=== PATIENT | female | born 1980 | race Caucasian/White ===

== ENCOUNTER 2020-06-16 08:29 | Outpatient (REF) | payer BC, OTHER, SELFPAY ==
[2020-06-16 14:13] LABS: CT PCR NOT DETECTED (Not Detect.); NG PCR NOT DETECTED (Not Detect.)
[2020-06-17 15:15] LABS: BV Int Neg Control Negative (Negative); BV Int Pos Control Positive (Positive)
[2020-06-21 14:22] LABS: HPV mRNA E6/E7 rflx Not Detected (Not Detected)
== END 2020-06-16 08:30 | disposition home or self-care (01) ==
LOC: HO.LAB 08:29
PROVIDERS: PCP Nurse Practitioner Family; Visit Provider Advanced Practice Midwife
DX: Z01.419 Encounter for gynecological examination (general) (routine) without abnormal findings (principal); Z11.3 Encounter for screening for infections with a predominantly sexual mode of transmission; Z11.51 Encounter for screening for human papillomavirus (HPV); N93.9 Abnormal uterine and vaginal bleeding, unspecified; Z20.2 Contact with and (suspected) exposure to infections with a predominantly sexual mode of transmission; Z80.3 Family history of malignant neoplasm of breast
CPT/HCPCS: 58100; 81025; 87480; 87491; 87510; 87591; 87624; 87660; 88142; 88305

== ENCOUNTER 2020-06-30 14:11 | Outpatient (REF) | payer BC, OTHER, SELFPAY ==
--- NOTE | ~2020-06-30 | US_ITS ---
EXAMINATION:US transvaginal, US pelvic complete CLINICAL INFORMATION: Reason for Exam Z80.3 - ABNORMAL UTERINE BLEEDING COMPARISON: No priors available. LMP: 06/18/2020 FINDINGS: UTERUS: The uterus is anteverted. Size: 9.7 x 4.9 cm. Uterine mass: There is no uterine mass. Cervix: Grossly unremarkable. Endometrium: There is echogenic structure within the endometrium, could be a polyp roughly measure 1.5 x 0.7 x 1.4 cm. endometrial thickness measures 1.2 cm ADNEXA: Normal Right ovary: Normal in size. Simple cyst 2.1 x 1.4 x 1.9 cm. Left ovary: Normal in size. Simple cyst 1.9 x 1.9 x 1.5 cm. Doppler exam: Normal Doppler flow identified in both ovaries. FREE FLUID: Trace amount of free fluid. OTHER FINDINGS: None US/US pelvic complete IMPRESSION: There is echogenic structure which could be a polyp within the endometrium 1.5 cm. Attention to follow-up recommended. Bilateral ovarian simple cystic structures likely follicles.
--- NOTE | ~2020-06-30 | US_ITS ---
EXAMINATION:US transvaginal, US pelvic complete CLINICAL INFORMATION: Reason for Exam Z80.3 - ABNORMAL UTERINE BLEEDING COMPARISON: No priors available. LMP: 06/18/2020 FINDINGS: UTERUS: The uterus is anteverted. Size: 9.7 x 4.9 cm. Uterine mass: There is no uterine mass. Cervix: Grossly unremarkable. Endometrium: There is echogenic structure within the endometrium, could be a polyp roughly measure 1.5 x 0.7 x 1.4 cm. endometrial thickness measures 1.2 cm ADNEXA: Normal Right ovary: Normal in size. Simple cyst 2.1 x 1.4 x 1.9 cm. Left ovary: Normal in size. Simple cyst 1.9 x 1.9 x 1.5 cm. Doppler exam: Normal Doppler flow identified in both ovaries. FREE FLUID: Trace amount of free fluid. OTHER FINDINGS: None US/US transvaginal IMPRESSION: There is echogenic structure which could be a polyp within the endometrium 1.5 cm. Attention to follow-up recommended. Bilateral ovarian simple cystic structures likely follicles.
[2020-06-30 15:15] LABS: Hematocrit 42.2 % (37-47); Hemoglobin 13.6 g/dl (12.0-16.0); Mean Corpuscular HGB Conc 32.2 g/dl (31.0-35.0); Mean Corpuscular Hemoglobin 30.1 pg (27.0-33.0); Mean Corpuscular Volume 93.4 fL (80-98); Mean Platelet Volume 11.9 fL (9.4-12.3); Platelet Count 253 X10*3/uL (160-400); Red Blood Count 4.52 X10*6/uL (4.20-5.50); Red Cell Distribution Width 12.7 % (11.0-16.0); White Blood Count 8.3 X10*3/uL (4.8-10.8)
[2020-06-30 16:05] LABS: Thyroid Stimulating Hormone 1.69 uIU/mL (0.32-4.0)
== END 2020-06-30 14:12 | disposition home or self-care (01) ==
LOC: HO.US 14:11
PROVIDERS: PCP Nurse Practitioner Family; Visit Provider Advanced Practice Midwife
DX: Z01.419 Encounter for gynecological examination (general) (routine) without abnormal findings (principal); N93.9 Abnormal uterine and vaginal bleeding, unspecified
CPT/HCPCS: 36415; 76830; 76856; 84443; 85027

== ENCOUNTER → 2020-07-07 11:20 | Outpatient (BNVA) | payer BC, OTHER, SELFPAY | PROVIDERS: Visit Provider Advanced Practice Midwife ==

== ENCOUNTER → 2020-07-17 14:55 | Outpatient (BNVA) | payer BC, OTHER, SELFPAY | PROVIDERS: PCP Nurse Practitioner Family; Visit Provider Obstetrics & Gynecology ==

== ENCOUNTER 2020-08-10 08:36 | Day surgery (SDC) | payer BC, OTHER, SELFPAY ==
[2020-08-04 13:42] VITALS: BMI 25.2
--- NOTE | 2020-08-08 14:52 | P.CONAN_ITS ---
Documented by User: Rita Carolina 08/08/20 14:53 HPI - Anesthesia Eval Consult details Narrative: 39yo F for D&C Hysteroscopy with Novasure, Poss Myosure PMFSH Active Problems Active Problems: All Active Problems (Updated 06/28/20 @ 10:15 by Migdalia Calhoun CNM) Cervical cancer screening (Acute) Family history of breast cancer in mother (Acute) Abnormal uterine bleeding (AUB) (Acute) Potential exposure to STD (Acute) Well woman exam with routine gynecological exam (Acute) Past Medical History Medical History Heavy menstrual bleeding Insomnia Seasonal allergies Family History Family History Father Myocardial infarction Diabetes mellitus Kidney failure Mother COPD (chronic obstructive pulmonary disease) Smoker Brother No problems noted. Maternal Grandmother Breast cancer Brother No problems noted. Son No problems noted. Son No problems noted. Maternal Aunt Cervical cancer Surgical History Surgical History History of bilateral tubal ligation History of tumor Social History Social History Alcohol intake: current Alcohol intake frequency: holidays/special occasions only Patient Tobacco Use Status: Former Tobacco user Quit Date: 2004 Tobacco use type: Cigarette Years Smoked: 10 Smoked in Last 30 Days: No Use of substances other than those prescribed or required for medical reasons: Yes Substance Use Type: Marijuana Substance Use Frequency: Occasionally Are you DNR?: No Advance Directives: No Advance Directives Information Provided: Yes Gender identity: female Meds Allergies Allergy/AdvReac Type Severity Reaction Status Date / Time No Known Allergies [NKA] Allergy Verified 07/17/20 14:59 Home Medications Medication Instructions Recorded Confirmed Last Taken Type cetirizine 10 mg tablet 10 mg PO DAILY PRN 06/16/20 06/16/20 Unknown History Exam Exam Date and Time: August 08, 2020 1452 Height,Weight and Vital Signs: Height 5 ft 2 in Weight 62.596 kg Assessment and Plan Assessment Anesthesia Assessment: Chart Reviewed Documented by User: Sarah Anderson 08/10/20 09:32 [facility] Past Medical History Medical History Heavy menstrual bleeding Insomnia Seasonal allergies Family History Family History Father Myocardial infarction Diabetes mellitus Kidney failure Mother COPD (chronic obstructive pulmonary disease) Smoker Brother No problems noted. Maternal Grandmother Breast cancer Brother No problems noted. Son No problems noted. Son No problems noted. Maternal Aunt Cervical cancer Surgical History Surgical History History of bilateral tubal ligation History of tumor Social History Social History Alcohol intake: current Alcohol intake frequency: holidays/special occasions only Patient Tobacco Use Status: Former Tobacco user Quit Date: 2004 Tobacco use type: Cigarette Years Smoked: 10 Smoked in Last 30 Days: No Use of substances other than those prescribed or required for medical reasons: Yes Substance Use Type: Marijuana Substance Use Frequency: Occasionally Are you DNR?: No Advance Directives: No Advance Directives Information Provided: Yes Gender identity: female Meds Allergies Allergy/AdvReac Type Severity Reaction Status Date / Time No Known Allergies [NKA] Allergy Verified 07/17/20 14:59 Home Medications Medication Instructions Recorded Confirmed Last Taken Type cetirizine 10 mg tablet 10 mg PO DAILY PRN 06/16/20 06/16/20 Unknown History Exam Airway Mallampati Class: I TM Dist: >3cm Neck ROM: Full Loose/Missing/Broken Teeth: No Heart: RRR Lungs: CTA Assessment and Plan Assessment Anesthesia Assessment: Anesthesia Plan Discussed and Chart Reviewed Final Anesthetic Review NPO: Yes ASA Class: II Final Preanesthetic Review: Meds/Allgs Chart Reviewed, Consent Obtained/Reviewed and Anes Risks/Benef Reviewed Patient Risk: Low Procedure Risk: Low Anesthetic Plan Anesthetic Plan: GA Disposition: Standard PACU
[2020-08-10 09:07] VITALS: BP 95/51; PULSE 68; RESP 16; TEMP 36.8; O2SAT 97; BMI 25.4
[2020-08-10] MEDS: Lactated Ringers 1,000 ML 100 ML IVCONT (09:07)
--- NOTE | 2020-08-10 09:13 | PC.NURSE ---
Patient wearing hoop earrings and one conchis wedding ring. All jewelry removed and placed in labeled blue cup.
[2020-08-10] MEDS: Acetaminophen 325 MG TABLET 975 MG PO (09:33)
--- NOTE | 2020-08-10 09:39 | MHC.SHP ---
Pre-Procedural Eval Section A The patient is an INPATIENT: No Changes since office visit: No Cold of Flu in the past 2 weeks, No New Medical Problems, No Changes in Medication and No Patient answered all questions The History & Physical has been completed within 30 days and I have reviewed it.: Yes Section B Chief Complaint: AVB Allergies: Allergies Allergy/AdvReac Type Severity Reaction Status Date / Time No Known Allergies [NKA] Allergy Verified 07/17/20 14:59 Plan I have reviewed the history and physical and performed a pertinent physical examination on my patient. No changes have occurred unless specified.
--- NOTE | 2020-08-10 09:40 | P.OP_ITS ---
Operative Note Operative Note Date of Service: 08/10/20 Narrative: Pre-Op Diagnoses: abnormal bleeding, suspected endometrial polyp Post-Op Diagnoses: same as pre-op Procedures performed: hysteroscopy D&C with myosure, novasure endometrial ablation Complications: None Specimens: endometrial curettings Disposition: PACU Ms. Cloud is a 39yo with menorrhagia for many years. Medical management was not attempted as she had her tubes tied previously in order to stop using hormonal control. An endometrial biopsy was performed, which showed secretory endometrium; negative for atypia or malignancy. The patient was counseled that endometrial ablation is not indicated if she d esires future fertility. The patient expressed understanding of this and stated that her family planning is complete and her current form of control is permanent sterilization. Surgical Risks: The patient was informed of the risks and benefits of the procedure. Risks included but were not limited to bleeding, infection, injury to the vulva, vagina, or cervix, and uterine perforation. The patient was also informed of the risk that the Novasure ablation may not result in full resolution of symptoms. The patient expressed understanding of the risks involved, all questions were answered, and she consented to the procedure. The patient was taken to the operating room where a time out was performed to confirm correct patient and correct procedure. General anesthesia was established. The patient was then positioned on the operating table in the dorsal lithotomy position and her legs supported using stirrups. All pressure points were padded and a warm blanket was placed to maintain control of core body temperature. The patient was then prepped and draped in the usual sterile fashion. A bimanual exam was performed and the uterus was found to be anteverted and approximately 6cm. The adnexa were palpated bilaterally and there were no palpable masses. The bladder was emptied with a straight catheter and 400mL of urine was obtained. A bivalve speculum was inserted into the vagina. The anterior lip of the cervix was visualized and grasped using a single tooth tenaculum. 12mL of 0.5% bupivicaine was injected at the 4 and 8 o?clock positions, 6mL each, as a paracervical block. The hysteroscope was introduced through the cervix and advanced to the fundus of the uterus under direct visualization using distending media. Inspection of the entire uterine cavity was performed. A small polyp was noted to be attached to the posterior left surface of the uterus. The myosure device was advanced through the sleeve of the hysteroscope and directed curettage performed until the polyp was removed. No other abnormalities were noted. The ostia were visualized bilaterally. The hysteroscope was then removed with the myosure within the sleeve of the scope. The Novasure SureSound device was then inserted through the cervix. The malecot was then deployed and the device was anchored on the internal os. The cervical length was measured and found to be 4cm. The probe was then extended to the fundus and the uterine cavity was measured and found to be 4.5cm. The SureSound was then removed and the Novasure was introduced through the cervix and advanced to the fundus. The Novasure was released and rotated from side to side in order to measure the cavity width; it was found to be 3.6cm. The test was performed using the NovaSure and there was no leakage of gas noted. The NovaSure was then set and deployed. It was set to a power of 89W and a burn time of 1:44. The NovaSure was then fully retracted and the hysteroscope reintroduced through the cervix and global ablation to the entire cavity was noted. The procedure was felt to be successful. The hysteroscope was then removed and the single tooth tenaculum was removed from the anterior lip of the cervix. Good hemostasis was confirmed. All needle, sponge, and instrument counts were noted to be correct x2 at the end of the procedure. The patient was transferred to the recovery room in stable condition.
[2020-08-10 10:27] LABS: UPreg QC Valid YES; Urine Pregnancy NEGATIVE (NEGATIVE)
[2020-08-10 11:14] VITALS: BP 119/54; PULSE 78; RESP 16; TEMP 36.3; O2SAT 99
[2020-08-10 11:19] VITALS: BP 122/56; PULSE 80; RESP 18; O2SAT 98
[2020-08-10 11:24] VITALS: BP 108/59; PULSE 75; RESP 16; O2SAT 99
[2020-08-10 11:29] VITALS: BP 113/62; PULSE 76; RESP 16; O2SAT 98
[2020-08-10 11:43] VITALS: BP 106/67; PULSE 69; RESP 18; TEMP 36.2; O2SAT 99
== END 2020-08-10 12:14 | disposition home or self-care (01) ==
LOC: HO.SSS 08:39
PROVIDERS: PCP Nurse Practitioner Family; Visit Provider Obstetrics & Gynecology
PROC: (CPT 58563; principal; 2020-08-10 10:30)
DX: N93.9 Abnormal uterine and vaginal bleeding, unspecified (principal); N84.0 Polyp of corpus uteri; Z98.51 Tubal ligation status; Z87.891 Personal history of nicotine dependence
CPT/HCPCS: 58563; 81025; 88305; J1100; J1885; J2250; J2405; J3010

== ENCOUNTER → 2020-08-25 11:19 | Outpatient (BNVA) | payer BC, OTHER, SELFPAY | PROVIDERS: PCP Nurse Practitioner Family; Visit Provider Obstetrics & Gynecology ==

== ENCOUNTER 2020-12-25 10:22 | Outpatient (REF) | payer BC, OTHER, SELFPAY ==
--- NOTE | ~2020-12-25 | MM_ITS ---
EXAMINATION: MM SCREENING DIGITAL BREAST TOMOSYNTHESIS, BILATERAL CLINICAL INFORMATION: Screening. Asymptomatic. Age 40. No prior breast imaging. Family history breast cancer, mother. The lifetime risk of breast cancer based on the Tyrer-Cuzick Model is 24%. COMPARISON: None (current study represents initial baseline exam). TECHNIQUE: Digital breast tomosynthesis is performed in both the craniocaudal and mediolateral oblique views along with computer-aided detection (CAD). Synthesized 2D images are generated from the tomosynthesis. FINDINGS: There are scattered areas of fibroglandular density (ACR BI-RADS breast composition Category b). There are no significant masses, abnormal calcifications, or other abnormalities. There is benign regional parenchymal asymmetry posterior upper outer left breast. The axilla and skin contours are unremarkable. MM/MM tomosynthesis screening BI IMPRESSION: No mammographic evidence of malignancy. ASSESSMENT: BI-RADS 2: Benign RECOMMENDATION: 1. Routine annual mammography screening. 2. The lifetime risk of breast cancer based on the Tyrer-Cuzick Model is 24%. Additional annual adjunct screening with breast MRI may be of benefit in women with a risk score of 20% or greater. This patient's information was entered into a reminder system with a target due date for their next mammogram.
== END 2020-12-25 10:23 | disposition home or self-care (01) ==
LOC: HO.MAMMO 10:22
PROVIDERS: PCP Nurse Practitioner Family; Visit Provider Advanced Practice Midwife
DX: Z12.31 Encounter for screening mammogram for malignant neoplasm of breast (principal)
CPT/HCPCS: 77063; 77067

== ENCOUNTER 2021-01-02 14:19 | Outpatient (REF) | payer BC, SELFPAY | END 2021-01-02 14:20 | disposition home or self-care (01) | LOC: HO.LAB 14:19 | PROVIDERS: PCP Nurse Practitioner Family; Visit Provider Internal Medicine | DX: Z20.822 Contact with and (suspected) exposure to COVID-19 (principal) | CPT/HCPCS: C9803; U0003; U0005 ==

== ENCOUNTER 2021-01-06 09:21 | Outpatient (REF) | payer BC, SELFPAY ==
--- NOTE | ~2021-01-06 | XR_ITS ---
EXAMINATION: XR CHEST CLINICAL INFORMATION: Acute upper respiratory infection COMPARISON: None TECHNIQUE: 2 views of the chest were obtained. FINDINGS: No significant abnormality is noted involving the heart, lungs, mediastinum, bony thorax or soft tissues. XR/XR chest 2V IMPRESSION: Unremarkable examination.
== END 2021-01-06 09:22 | disposition home or self-care (01) ==
LOC: HO.XRAY 09:21
PROVIDERS: PCP Nurse Practitioner Family; Visit Provider Hospitalist
DX: J06.9 Acute upper respiratory infection, unspecified (principal)
CPT/HCPCS: 71046

== ENCOUNTER 2022-01-02 07:50 | Outpatient (REF) | payer BC, SELFPAY ==
[2022-01-02 08:11] LABS: COVID-19 Test Positive (Negative); IDNOW Serial# 16C4AD1C
== END 2022-01-02 07:51 | disposition home or self-care (01) ==
LOC: HO.LAB 07:50
PROVIDERS: Visit Provider Internal Medicine
DX: Z20.822 Contact with and (suspected) exposure to COVID-19 (principal)
CPT/HCPCS: 87635; C9803

== ENCOUNTER 2022-04-12 07:48 | Outpatient (REF) | payer BC, SELFPAY ==
[2022-04-12 08:39] LABS: COVID-19 Test Negative (Negative); IDNOW Serial# BCCEAD1C
== END 2022-04-12 07:49 | disposition home or self-care (01) ==
LOC: HO.LAB 07:48
PROVIDERS: Visit Provider Internal Medicine
DX: Z20.822 Contact with and (suspected) exposure to COVID-19 (principal)
CPT/HCPCS: 87635; C9803

== ENCOUNTER 2022-10-15 15:45 | Outpatient (AMB) | payer OTHER, SELFPAY ==
--- NOTE | 2022-10-15 15:53 | MHC.PC.OV ---
Vital Signs 10/15/22 15:54 Height 5 ft 2 in Weight 144 lb 2 oz BMI 26.4 BP 110/68 Blood Pressure Location Rt brachial Pulse 69 Pulse Source Pulse Oximeter Pulse Oximetry (%) 99 Oxygen Delivery Method Room Air Intake Visit Reasons: Annual PE Per Allergies No Known Allergies [NKA] Allergy (Verified 10/15/22 15:57) Tobacco use date assessed: 10/15/22 Dental Screening Dental Screen Date: 10/15/22 Did you have a dental visit in the last 12 months?: Yes Did you have a dental problem in the last 6 months where you did not have access to dental care?: No Was dental information given to patient?: Patient has dentist HPI Annual PE Per HPI Details Pt is here for a PE. Will order labs. Has a obstetrics gynecology physician. Due for mammo, will order. Pt reports increased anxiety due to issues in her marriage. She reports recent panic attacks. Pt will work on finding a therapist. Denies any SI and HI. Pt also c/o cervical neck pain. She denies any radicular symptoms down her BUE. Will order xr. [facility] Medical History Heavy menstrual bleeding Insomnia Seasonal allergies Surgical History History of bilateral tubal ligation History of tumor Family History Father Myocardial infarction Diabetes mellitus Kidney failure Substance use disorder Mental health disorder Mother COPD (chronic obstructive pulmonary disease) Smoker Substance use disorder Mental health disorder Brother No problems noted. Maternal Grandmother Breast cancer Brother No problems noted. Son No problems noted. Son No problems noted. Maternal Aunt Cervical cancer Substance use disorder Mental health disorder Paternal Uncle Substance use disorder Social History Housing: Apartment Alcohol intake: current Alcohol intake frequency: holidays/special occasions only Patient Tobacco Use Status: Former Tobacco user Quit Date: 2004 Tobacco use type: Cigarette Years Smoked: 10 e-Cigarette/Vaping Use: Currently Using (vapes) Substance Use Type: Marijuana Current occupational status: employed Gender identity: Female Cognitive needs: No Hearing needs: No Vision needs: Yes Female Reproductive History Menstrual Age of Menarche: 12 Questionnaire PHQ-9 Over the last 2 weeks, how often have you been bothered by any of the following problems? 1. Little interest or pleasure in doing things: more than half the days 2. Feeling down, depressed, or hopeless: more than half the days 3. Trouble falling or staying asleep, or sleeping too much: nearly every day 4. Feeling tired or having little energy: more than half the days 5. Poor appetite or overeating: more than half the days 6. Feeling bad about yourself - or that you are a failure or have let yourself or your family down: more than half the days 7. Trouble concentrating on things, such as reading the newspaper or watching television: more than half the days 8. Moving or speaking so slowly that other people could have noticed. Or the opposite - being so fidgety or restless that you have been moving around a lot more than usual: not at all 9. Thoughts that you would be better off or of hurting yourself in some way: not at all Total score: 15 Depression Screening Interpretation: Positive (will send a note to ) Depression Screening Follow-up: Existing condition 34959 - PHQ-9 Billing: Yes Source: Developed by Drs. Shivam Bolivar, Margaux Gaspar, Alexis Montalvo and colleagues, with an educational stacy from [employer]. Thrive Questionnaire Date Thrive assessed: 10/15/22 I am a: Patient What is your living situation today?: I have a steady place to live Within the past 12 months, did the food you bought not last and you didn't have the money to get more?: Never true Within the past 12 months, did you worry whether your food would run out before you got money to buy more?: Never true Do you have trouble paying for medicines?: No Do you have trouble getting transportation to medical appointments?: No Do you have trouble paying your heating and electricity bill?: No Do you have trouble taking care of your child, family member or friend?: No Do you have trouble with day-to-day activities such as bathing, preparing meals, shopping, managing finances, etc.?: No Are you currently unemployed and looking for a job?: No Are you interested in more education?: No AUDIT C Alcohol Use Questionnaire (AUDIT-C) 1. How often do you have a drink containing alcohol?: Never 3. How often do you have six or more drinks on one occasion?: Never Total Score: 0 MINI-7 AMB Questionnaire MINI-7 Date MINI - 7 assessed: 10/15/22 Feeling nervous, anxious, or on edge: 3 = Nearly every day Not being able to stop or control worryin = Nearly every day Worrying too much about different things: 3 = Nearly every day Trouble relaxin = More than half the days Being so restless that it is hard to sit still: 0 = Not at all Becoming easily annoyed or irritable: 3 = Nearly every day Feeling afraid as if something awful might happen: 2 = More than half the days Total MINI-7 score (0-4 normal; 5-9 mild; 10-14 moderate; 15-21 severe): 16 Source: Developed by Drs. Shivam Bolivar, Margaux Gaspar, Alexis Montalvo and colleagues, with an educational stacy from [employer]. MINI-7 Assessment Billing MINI-7 Assessment Tool: MINI-7 Assessment 15364 Review of Systems Const Denies chills and Denies fever(s) Eyes Denies blurry vision ENT Denies vertigo, Denies dizziness and Denies sore throat Card Denies chest pain at rest, Denies chest pain with activity, Denies diaphoresis, Denies dyspnea and Denies dyspnea on exertion Resp Denies cough, Denies dyspnea, Denies dyspnea on exertion and Denies wheezing GI Denies abdominal pain, Denies melena, Denies hematochezia, Denies constipation, Denies diarrhea and Denies loose stools Denies hematuria Musc Denies numbness and Denies tingling Skin/Breast Denies lesions Neuro Denies vertigo, Denies dizziness, Denies numbness and Denies tingling Psych Denies anxiety, Denies depression, Denies homicidal ideation, Denies suicidal ideation and Denies other (substance abuse) Aller/Immun Denies wheezing Physical exam (Primary Care) Vital Signs: Last Vital Signs Pulse 69 10/15/22 15:54 BP 110/68 10/15/22 15:54 Pulse Ox 99 10/15/22 15:54 Oxygen Delivery Method Room Air 10/15/22 15:54 BMI result Body Mass Index 26.4 Tobacco/Smoking Status: Tobacco use Status Tobacco use date assessed 10/15/22 10/15/22 16:00 Patient Tobacco Use Status Former Tobacco user 10/15/22 15:53 Tobacco use type Cigarette 10/15/22 15:53 e-Cigarette/Vaping Use Currently Using (vapes) 10/15/22 15:53 PHQ-9: PHQ-9 Score PHQ-9: Total score 15 10/15/22 16:10 Depression Screening Interpretation: Positive (will send a note to ) Depression Screening Follow-up: Existing condition Thrive Assessment: Date of Thrive Assessment Date Thrive assessed 10/15/22 10/15/22 16:10 Const General: cooperative Nutritional Appearance: well nourished Orientation/consciousness: patient oriented x3 HENMT Head: Yes normal to inspection, Yes normocephalic and Yes atraumatic Ears: TM's normal bilaterally Eyes General: appearance normal, both eyes and all related structures Alignment and Position: alignment normal and position normal Neck Neck: Yes normal visual inspection and Yes no lymphadenopathy Thyroid: Thyroid normal Resp Effort & Inspection: normal respiratory effort Auscultation: clear to auscultation bilaterally Cardio Rate: regular rate Rhythm: regular rhythm Heart sounds: S1 normal heart sound present, S2 normal heart sound present and Murmur heart sound present (faint) systolic GI Palpation (GI): Soft to palpation and nontender Auscultation: normal bowel sounds Back/Spine/Pelvis Other: - spurlings, no pain with turning head side to side Skin Rashes: no rashes Neuro General: patient oriented x3, moves all extremities, no focal motor deficits and deep tendon reflexes 2+ bilaterally Romberg Test: Negative Psych Appearance: grossly normal Mental Status: mental status grossly normal Speech and movement: Normal speech and movement present Affect: normal affect Attitude: cooperative Thought process: Normal thought process present Thought content: Normal thought content present Insight: Good insight present (Psych) Judgement: Good judgement present (Psych) Assessment and Plan Assessment & Plan (1) Physical exam: Code(s): Z00.00 - Encounter for general adult medical examination without abnormal findings (2) Cervical neck pain with evidence of disc disease: Code(s): M50.90 - Cervical disc disorder, unspecified, unspecified cervical region Plan The patient agreed to the use of a medical lab technologist for this encounter. Scribed for KAILA Lofton-BC by Melissa Shirley medical lab technologist, on 10/15/2022 at 16:10 EST. Orders: Orders Comprehensive [place]. Panel Fast Today Z00.00 - Encounter for general adult medical examination without abnormal findings Lipid Panel Today Z00.00 - Encounter for general adult medical examination without abnormal findings TSH reflex Free T4 Today Z00.00 - Encounter for general adult medical examination without abnormal findings Complete Blood Count Auto Diff Today Z00.00 - Encounter for general adult medical examination without abnormal findings UA CC w/rflx Micro + Cult Today Z00.00 - Encounter for general adult medical examination without abnormal findings XR cervical spine 2V Today M50.90 - Cervical disc disorder, unspecified, unspecified cervical region MM screening mammo BI Today Z12.31 - Encounter for screening mammogram for malignant neoplasm of breast Coding Level of Care Code Est Pt Prev Care 40-64y(87361) Diagnoses Physical exam Z00.00 Cervical neck pain with evidence of disc disease M50.90 Additional Codes MINI-7 Assessment Billing - MINI-7 Assessment Tool: MINI-7 Assessment 59079 ([id number])
[2022-10-15 15:54] VITALS: BP 110/68; PULSE 69; O2SAT 99; BMI 26.4
== END 2022-10-15 16:56 | disposition home or self-care (01) ==
PROVIDERS: PCP Internal Medicine; Visit Provider Nurse Practitioner Family
DX: Z00.00 Encounter for general adult medical examination without abnormal findings (principal); M50.90 Cervical disc disorder, unspecified, unspecified cervical region
CPT/HCPCS: 99396

== ENCOUNTER 2022-12-02 08:00 | Outpatient (AMB) | payer OTHER, SELFPAY ==
[2022-12-02 08:08] VITALS: BP 106/64; PULSE 78; TEMP 36.6; O2SAT 98; BMI 25.2
--- NOTE | 2022-12-02 08:08 | MHC.OFFWIV ---
Intake Vital Signs 12/02/22 08:08 Height 5 ft 2 in Weight 138 lb BMI 25.2 BP 106/64 Blood Pressure Location Rt brachial Position Sitting Pulse 78 Pulse Source Pulse Oximeter Temp 97.8 F Temp Source Temporal Artery Scan Pulse Oximetry (%) 98 Intake Visit Reasons: EP Flu like symptoms (masked) Intake Note: pt is here for c/o upset stomach, projectile vomiting, fever Patient Tobacco Use Status: Former Tobacco user Quit Date: 2004 Allergies No Known Allergies [NKA] Allergy (Verified 12/02/22 08:08) Medication List - Last Reconciled 12/02/22 by Johnny Pop MD ibuprofen (IBU-200) 400 mg PO Q8H Do you need a note to return to daycare/school/sports/work: Yes HPI EP Flu like symptoms (masked) HPI Details Patient presents for a sick visit. Reporting symptoms of sinus congestion, sore throat and difficulty swallowing. Low-grade fever. No family member is sick. No recent travel. Patient reports symptoms of malaise and fatigue. [facility] Medical History Heavy menstrual bleeding Insomnia Seasonal allergies Surgical History History of bilateral tubal ligation History of tumor Family History Father Myocardial infarction Diabetes mellitus Kidney failure Substance use disorder Mental health disorder Mother COPD (chronic obstructive pulmonary disease) Smoker Substance use disorder Mental health disorder Brother No problems noted. Maternal Grandmother Breast cancer Brother No problems noted. Son No problems noted. Son No problems noted. Maternal Aunt Cervical cancer Substance use disorder Mental health disorder Paternal Uncle Substance use disorder Social History Housing: Apartment Alcohol intake: current Alcohol intake frequency: holidays/special occasions only Patient Tobacco Use Status: Former Tobacco user Quit Date: 2004 Tobacco use type: Cigarette Years Smoked: 10 e-Cigarette/Vaping Use: Currently Using (vapes) Substance Use Type: Marijuana Current occupational status: employed Gender identity: Female Cognitive needs: No Hearing needs: No Vision needs: Yes Female Reproductive History Menstrual Age of Menarche: 12 Physical Exam Vital Signs: Last Vital Signs Temp 97.8 F 12/02/22 08:08 Pulse 78 12/02/22 08:08 BP 106/64 12/02/22 08:08 Pulse Ox 98 12/02/22 08:08 BMI result Body Mass Index 25.2 Const General: cooperative and healthy appearing Nutritional Appearance: well nourished Orientation/consciousness: patient oriented x3 Limitations: no limitations HEENT Head: Yes normal to inspection Eyes General: appearance normal, both eyes and all related structures Neck Neck: Yes normal visual inspection Chest Chest palpation & inspection: normal palpation of entire chest wall Resp Effort & Inspection: normal respiratory effort Neuro General: patient oriented x3 Assessment & Plan Assessment & Plan (1) Upper respiratory tract infection: Code(s): J06.9 - Acute upper respiratory infection, unspecified Qualifiers: URI type: unspecified viral URI Qualified Code(s): J06.9 - Acute upper respiratory infection, unspecified Plan: Increase fluid intake. Tylenol for aches and pains. If symptoms worsen, follow-up here for a recheck. No antibiotics needed. Note for work given. COVID testing done, will call with results Coding Level of Care Code Est Pt Level 3 (12588) Diagnoses Viral upper respiratory tract infection J06.9 URI type: unspecified viral URI
== END 2022-12-02 09:03 | disposition home or self-care (01) ==
PROVIDERS: PCP Nurse Practitioner Family; Visit Provider Internal Medicine
DX: J06.9 Acute upper respiratory infection, unspecified (principal)
CPT/HCPCS: 99213

== ENCOUNTER 2022-12-02 13:40 | Outpatient (REF) | payer OTHER, SELFPAY ==
[2022-12-02 15:55] LABS: Influenza A PCR NEGATIVE (Negative); Influenza B PCR NEGATIVE (Negative); Resp Syncy Virus RNA Qual PCR NEGATIVE (Negative); SARS COV2 PCR INHOUSE NEGATIVE (Negative)
== END 2022-12-02 13:41 | disposition home or self-care (01) ==
LOC: HO.LNP 13:40
PROVIDERS: Visit Provider Internal Medicine
DX: R43.9 Unspecified disturbances of smell and taste (principal); Z20.822 Contact with and (suspected) exposure to COVID-19
CPT/HCPCS: 0241U

== ENCOUNTER 2023-12-13 09:16 | Outpatient (AMB) | payer BC, SELFPAY ==
--- NOTE | 2023-12-13 09:16 | MHC.OFFWIV ---
Intake Vital Signs 12/13/23 09:20 Height 5 ft 2 in Weight 150 lb BMI 27.4 BP 122/72 Blood Pressure Location Rt brachial Position Sitting Pulse 74 Pulse Source Pulse Oximeter Temp 97.9 F Temp Source Temporal Artery Scan Pulse Oximetry (%) 98 Intake Visit Reasons: Chest pain Intake Note: pt is here for chest pain for 3 days, patient has hx of anxiety, depression, fam hx of heart issues. patient states she has been having chest pain for 3 days and its a nagging feeling. Patient Tobacco Use Status: Former Tobacco user Allergies No Known Allergies [NKA] Allergy (Verified 12/13/23 09:20) Do you need a note to return to daycare/school/sports/work: No HPI Chest pain HPI Details Patient is a 43-year-old female with a history of anxiety and a family history of early coronary artery disease, who comes to the walk-in clinic complaining of 3 days of left sided chest pain. She reports no underlying acute trauma, and symptoms have not been relieved with rest, antacids, pain medication. Symptoms worsen with movement, eating. Her father had his 1st severe heart attack in his 30s and in his 50s from an [place]. she does get intermittent dizziness associated with the chest pain, and clamminess, although this is not occurring during exam in the office. Her vitals are stable, and she is currently not in distress, but reports 6/10 intermittent sharp left-sided chest pain that takes her breath away at times. She denies palpitations, nausea vomiting or diarrhea, weakness or vertigo, myalgias or malaise, syncope, altered mental status, respiratory symptoms, shortness of breath, or other significant associated symptoms. [facility] Medical History Heavy menstrual bleeding Insomnia Seasonal allergies Surgical History History of bilateral tubal ligation History of tumor Family History Father Myocardial infarction Diabetes mellitus Kidney failure Substance use disorder Mental health disorder Mother COPD (chronic obstructive pulmonary disease) Smoker Substance use disorder Mental health disorder Brother No problems noted. Maternal Grandmother Breast cancer Brother No problems noted. Son No problems noted. Son No problems noted. Maternal Aunt Cervical cancer Substance use disorder Mental health disorder Paternal Uncle Substance use disorder Social History Housing: Apartment Alcohol intake: current Alcohol intake frequency: holidays/special occasions only Patient Tobacco Use Status: Former Tobacco user Tobacco use type: Cigarette Years Smoked: 10 e-Cigarette/Vaping Use: Currently Using Substance Use Type: Marijuana Current occupational status: employed Gender identity: Female Cognitive needs: No Hearing needs: No Vision needs: Yes Female Reproductive History Menstrual Age of Menarche: 12 Physical Exam Vital Signs: Last Vital Signs Temp 97.9 F 12/13/23 09:20 Pulse 74 12/13/23 09:20 BP 122/72 12/13/23 09:20 Pulse Ox 98 12/13/23 09:20 BMI result Body Mass Index 27.4 Const General: cooperative, healthy appearing, comfortable, no acute distress, alert, awake, Physically active and well groomed; No anxious, diaphoretic, ill appearing, intoxicated appearing, poor hygiene or tired appearing Nutritional Appearance: average body habitus Orientation/consciousness: oriented to person Limitations: no limitations Chest Chest palpation & inspection: normal palpation of entire chest wall Resp Effort & Inspection: normal respiratory effort, able to speak in complete sentences, no audible wheezes, no cough, no grunting, not labored, no nasal flaring, no retractions and symmetric chest movement Auscultation: clear to auscultation bilaterally, no crackles, no rales, no rhonchi, no wheezes, lung sounds not diminished and No rub present Cardio Palpation: normal PMI Rate: regular rate Rhythm: regular rhythm Heart sounds: S1 normal heart sound present and S2 normal heart sound present Skin Other: Good color, warm and dry Neuro General: oriented to person Psych Appearance: grossly normal Mental Status: mental status grossly normal Speech and movement: Normal speech and movement present Affect: normal affect Attitude: cooperative Thought process: Normal thought process present Insight: Good insight present (Psych) Judgement: Good judgement present (Psych) Assessment & Plan Assessment & Plan (1) Chest pain: Code(s): R07.9 - Chest pain, unspecified Qualifiers: Chest pain type: unspecified Qualified Code(s): R07.9 - Chest pain, unspecified Plan: Patient is a 43-year-old female with a history of anxiety and a family history of early coronary artery disease, who comes to the walk-in clinic complaining of 3 days of left sided chest pain. She reports no underlying acute trauma, and symptoms have not been relieved with rest, antacids, pain medication. Her father had his 1st severe heart attack in his 30s and in his 50s from an [place]. she does get intermittent dizziness associated with the chest pain, and clamminess, although this is not occurring during exam in the office. Her vitals are stable, and she is currently not in distress, but reports 6/10 intermittent sharp left-sided chest pain that takes her breath away at times. Twelve lead EKG shows normal sinus rhythm with no ST changes, however due to her story, I advised that she go to the emergency department for cardiac enzyme monitoring. She was amenable to this, and we called an ambulance for transport. Expect was called into [facility] Emergency Department. Coding Level of Care Code Est Pt Level 4 (30596) Diagnoses Chest pain, unspecified type R07.9 Chest pain type: unspecified
[2023-12-13 09:20] VITALS: BP 122/72; PULSE 74; TEMP 36.6; O2SAT 98; BMI 27.4
== END 2023-12-13 10:16 | disposition home or self-care (01) ==
PROVIDERS: PCP Nurse Practitioner Family; Visit Provider Physician Assistant Medical
DX: R07.9 Chest pain, unspecified (principal)

== ENCOUNTER → 2023-12-13 09:16 | Outpatient (BNVA) | payer BC, SELFPAY | PROVIDERS: PCP Nurse Practitioner Family | DX: R07.9 Chest pain, unspecified (principal); Z82.49 Family history of ischemic heart disease and other diseases of the circulatory system | CPT/HCPCS: 93005 ==

== ENCOUNTER 2023-12-13 10:21 | Emergency (ER) | payer BC, SELFPAY ==
--- NOTE | ~2023-12-13 | XR_ITS ---
EXAMINATION: XR CHEST CLINICAL INFORMATION: Chest pain COMPARISON: Chest x-ray January 06, 2021 TECHNIQUE: Frontal view of the chest was obtained. FINDINGS: Cardiac silhouette is normal in size. The lungs are well aerated. There is no lobar consolidation. No pleural effusion or pneumothorax. XR/XR chest 1V IMPRESSION: No acute pulmonary pathology. Electronically signed by: Edilson Bueno MD 12/13/2023 11:23 AM EDT
--- NOTE | 2023-12-13 10:24 | ED.CHESTPAIN ---
HPI - Chest Pain General Chief Complaint: Chest Pain Stated Complaint: CHEST PAIN X 3 DAYS, FROM Time Seen by Provider: 12/13/23 10:23 Source: patient Mode of arrival: ambulatory Limitations: no limitations History of Present Illness ED Provider: aicha FITCH narrative: Patient history of anxiety depression complaining of left-sided chest pain for last 3 days continuous gets worse in between with radiation the pain to the left shoulder with tingling feeling in the left hand patient very comes on as strong family history of coronary artery disease in the father side went to the urgent care center cardiac rhythm was normal came here by ambulance no relation of the pain with food or exercise patient has tried Tums without much relief no long distance travel no leg swelling Related Data Allergies Allergy/AdvReac Type Severity Reaction Status Date / Time No Known Allergies [NKA] Allergy Verified 12/13/23 10:37 Review of Systems Review of Systems: Yes all other systems are reviewed and are negative PMFSH Past Medical History Medical History Insomnia Heavy menstrual bleeding Seasonal allergies Surgical History History of bilateral tubal ligation History of tumor Family History Family History Father Myocardial infarction Diabetes mellitus Kidney failure Substance use disorder Mental health disorder Mother COPD (chronic obstructive pulmonary disease) Smoker Substance use disorder Mental health disorder Brother No problems noted. Maternal Grandmother Breast cancer Brother No problems noted. Son No problems noted. Son No problems noted. Maternal Aunt Cervical cancer Substance use disorder Mental health disorder Paternal Uncle Substance use disorder Social History Social History Housing: Apartment Alcohol intake: current Alcohol intake frequency: holidays/special occasions only Patient Tobacco Use Status: Former Tobacco user Tobacco use type: Cigarette Years Smoked: 10 Smoked in Last 30 Days: No e-Cigarette/Vaping Use: Currently Using Use of substances other than those prescribed or required for medical reasons: Yes Substance Use Type: Marijuana Advance Directives: No Advance Directives Information Provided: No Current occupational status: employed Gender identity: Female Cognitive needs: No Hearing needs: No Vision needs: Yes Physical Exam Vital Signs: Vital Signs: Last Vital Signs Temp 98.1 F 12/13/23 12:29 Pulse 67 12/13/23 12:29 Resp 20 12/13/23 12:29 BP 116/57 L 12/13/23 12:29 Pulse Ox 98 12/13/23 12:29 O2 Del Method Room Air 12/13/23 12:29 BMI result Body Mass Index 30.9 Appearance: Alert. Oriented X3. No acute distress. Anxious Eyes: PERRLA, No Nystagmus ENT: Pharynx normal. Oral Mucosa moist Neck: Normal inspection. Neck supple. CVS: Normal heart rate and rhythm. Pulses normal. Respiratory: No respiratory distress. Equal air entry bilateral, no wheezing/rales/rhonchi Abdomen: Soft and nontender. Bowel sounds are present, no mass palpable, no CVA tenderness Skin: Skin warm and dry. Normal skin color. Normal skin turgor. Extremities: No lower extremity edema. No calf tenderness Neuro: Oriented X 3. No motor deficit. Medical Decision Making Medical Decision Making [facility] Narrative: Patient has atypical chest pain for last 3 days high sensitive troponin negative EKG negative without any ischemic changes D-dimer negative for PE will discharge patient home advised to follow with further evaluation Differential Diagnosis Differential Diagnoses: The differential diagnosis associated with the presentation includes ACS/PE/atypical chest Admission/Observation Consideration of admission/observation: Escalation of care including admission/observation considered Lab Data [facility] Lab Attestation statement: I reviewed the patient's lab results. 12/13/23 10:51 12/13/23 10:51 Labs: Lab Results 12/13/23 Range/Units 10:51 WBC 8.3 (4.8-10.8) X10*3/uL RBC 4.75 (4.20-5.50) X10*6/uL Hgb 14.1 (12.0-16.0) g/dl Hct 42.5 (37.0-47.0) % MCV 89.5 (80.0-98.0) fL MCH 29.7 (27.0-33.0) pg MCHC 33.2 (31.0-35.0) g/dl RDW 12.9 (11.0-16.0) % Plt Count 318 (160-400) X10*3/uL MPV 11.0 (9.4-12.3) fL Immature Gran % (Auto) 0.4 (0.0-0.4) % Neut % (Auto) 73.6 H (45-73) % Lymph % (Auto) 19.0 L (20-40) % Coleman % (Auto) 5.5 (2-11) % Eos % (Auto) 1.0 (0-4) % Baso % (Auto) 0.5 (0-2) % Lymph # (Auto) 1.6 (1.2-4.9) X10*3/uL Coleman # (Auto) 0.5 (0.1-1.2) X10*3/uL Eos # (Auto) 0.1 (0.0-0.4) X10*3/uL Baso # (Auto) 0.0 (0.0-0.2) X10*3/uL Abs Immat Gran (auto) 0.03 (0.00-0.03) X10*3/uL Absolute Neuts (auto) 6.1 (2.0-8.3) x10*3/uL Absolute Nucleated RBC 0.000 (0.0-0.012) X10*3/uL Nucleated RBC % (auto) 0.0 (0.0-0.2) /100WBC PT 12.0 (10.9-12.4) SEC INR 1.0 (0.9-1.1) D-Dimer High Sensitivty < 150 NG/ML Sodium 139 (135-145) mmol/L Potassium 4.0 (3.3-5.1) mmol/L Chloride 106 (96-108) mmol/L Carbon Dioxide 25 (22-29) mmol/L Anion Gap 12 (12-20) BUN 15 (9-16) mg/dL Creatinine 0.68 (0.5-1.4) mg/dL Estim Creat Clear Calc 102.3 Estimated GFR > 60 Random Glucose 86 (60-115) mg/dL Calcium 9.3 (8.4-10.2) mg/dL Total Bilirubin 0.3 (0.0-1.0) mg/dL AST 19 (5-31) U/L ALT 14 (0-31) U/L Alkaline Phosphatase 71 (39-117) U/L Troponin I High Sens < 2.7 (<3.5-17.0) ng/L Total Protein 8.2 H (6.5-8.0) g/dL Albumin 4.5 (3.5-5.0) g/dL Independent Interpretation I performed an independent interpretation of an: EKG Interpretation: Normal sinus rhythm heart rate 66 beats per minute normal interval normal axis no acute ST-T no acute ischemia Discharge Plan Discharge Clinical Impression: Chest pain Patient Disposition: Home, Self-Care Instructions: Chest Pain (ED) Additional Instructions: Your chest pain is unlikely from the cardiac origin at this time there is no evidence of cardiac injury Your chest pain could be muscular Take Tylenol/Motrin for pain Follow with your PCP further evaluation Interventions: ED Discharge Assessment Last Done: 12/13/23 12:29 Discharge Date/Time: 12/13/23 12:30 Print Language: Romanian
[2023-12-13 10:25] VITALS: BP 136/89; PULSE 77; O2SAT 98
[2023-12-13 10:36] VITALS: BP 149/68; PULSE 75; RESP 18; TEMP 36.7; O2SAT 99; BMI 30.9
[2023-12-13 11:01] LABS: MANUAL DIFF FLAG NO
[2023-12-13 11:03] LABS: Basophils Percent Auto 0.5 % (0-2); Eosinophils Absolute Auto 0.1 X10*3/uL (0.0-0.4); Hematocrit 42.5 % (37.0-47.0); Hemoglobin 14.1 g/dl (12.0-16.0); Imm Gran Abs Auto 0.03 X10*3/uL (0.00-0.03); Imm Gran Pct Auto 0.4 % (0.0-0.4); Lymphocytes Absolute Auto 1.6 X10*3/uL (1.2-4.9); Mean Corpuscular HGB Conc 33.2 g/dl (31.0-35.0); Mean Corpuscular Hemoglobin 29.7 pg (27.0-33.0); Mean Corpuscular Volume 89.5 fL (80.0-98.0); Monocytes Absolute Auto 0.5 X10*3/uL (0.1-1.2); Monocytes Percent Auto 5.5 % (2-11); Neutrophils Absolute Auto 6.1 x10*3/uL (2.0-8.3); Neutrophils Percent Auto 73.6 % (45-73); Platelet Count 318 X10*3/uL (160-400); Red Blood Count 4.75 X10*6/uL (4.20-5.50); Red Cell Distribution Width 12.9 % (11.0-16.0); White Blood Count 8.3 X10*3/uL (4.8-10.8)
--- NOTE | 2023-12-13 11:03 | ECG_ITS ---
Test Reason : CHEST PAIN Blood Pressure : / mmHG Vent. Rate : 066 BPM Atrial Rate : 066 BPM P-R Int : 158 ms QRS Dur : 088 ms QT Int : 400 ms P-R-T Axes : 024 055 -01 degrees QTc Int : 419 ms Normal sinus rhythm with sinus arrhythmia Cannot rule out Anterior infarct , age undetermined Abnormal ECG No previous ECGs available Referred By: Kash Fitzpatrick Electronically Signed By:VANDANA HWANG
--- NOTE | 2023-12-13 11:07 | PC.NURSE ---
pt aox4, ambulatory. comes to ED with chest pain on and off for 3 days. She says she has a family hx of CAD and went to who sent her here for lab work. EKG at was NSR. Pt denies pain at the moment, says when it comes on it is sharp, sudden and takes her breath away. It is on the left side and radiates to her LUE and to her fingers. Denies other symptoms. Before 3 days ago she has not experienced chest pain like this. IV20g inserted via EMS.
[2023-12-13 11:32] LABS: D Dimer High Sensitivity < 150 NG/ML
[2023-12-13 11:55] LABS: Troponin-I High Sensitivity < 2.7 ng/L (<3.5-17.0)
[2023-12-13 12:02] LABS: Alanine Aminotransferase 14 U/L (0-31); Albumin Level 4.5 g/dL (3.5-5.0); Alkaline Phosphatase 71 U/L (39-117); Anion Gap 12 (12-20); Aspartate Amino Transferase 19 U/L (5-31); Bilirubin Total 0.3 mg/dL (0.0-1.0); Blood Urea Nitrogen 15 mg/dL (9-16); Calcium 9.3 mg/dL (8.4-10.2); Carbon Dioxide 25 mmol/L (22-29); Chloride 106 mmol/L (96-108); Creatinine Clr Calc Pharmacy 102.3; Estimated Glomerular Filt Rate > 60; Glucose Random 86 mg/dL (60-115); Sodium 139 mmol/L (135-145); Total Protein 8.2 g/dL (6.5-8.0)
[2023-12-13 12:25] VITALS: BP 116/57; PULSE 67; RESP 20; TEMP 36.7; O2SAT 98
[2023-12-13 12:29] VITALS: BP 116/57; PULSE 67; RESP 20; TEMP 36.7; O2SAT 98
== END 2023-12-13 12:30 | disposition home or self-care (01) ==
PROVIDERS: Emergency Provider Internal Medicine; PCP Nurse Practitioner Family
DX: R07.9 Chest pain, unspecified (principal); Z87.891 Personal history of nicotine dependence
CPT/HCPCS: 36415; 71045; 80053; 84484; 85025; 85379; 85610; 93005; 99283; 99285

== ENCOUNTER 2024-01-08 11:30 | Outpatient (AMB) | payer BC, SELFPAY ==
[2024-01-08 11:35] VITALS: BP 122/70; PULSE 68; O2SAT 98; BMI 30.5
--- NOTE | 2024-01-08 11:35 | A.OFFPC_ITS ---
Vital Signs 01/08/24 11:35 Height 5 ft 2 in Weight 167 lb BMI 30.5 BP 122/70 Blood Pressure Location Rt brachial Position Sitting Pulse 68 Pulse Source Pulse Oximeter Pulse Oximetry (%) 98 Intake Visit Reasons: ED f/up Intake Note: pt is here for ED f.up Talent Advisor Required: No Accompanied by: Self / Same As Patient Allergies No Known Allergies [NKA] Allergy (Verified 01/08/24 11:36) Tobacco use date assessed: 01/08/24 Dental Screening Dental Screen Date: 01/08/24 Did you have a dental visit in the last 12 months?: Yes Did you have a dental problem in the last 6 months where you did not have access to dental care?: No Was dental information given to patient?: Patient has dentist HPI HPI Comments History of Present Illness Details 43 y/o female patient who presents to [facility] for EDF. She was admitted at [facility] on 12/13/23 for Atypical chest pains. She was discharged home the same day on stable condition. D-Dimer, ECG negative, r/o ACS. Today states that chest pain has resolved. She does c/o sharp pain located on left Lateral hip x 6 months. States that pain is constant and sharp radiating down to her lower leg and foot. States pain with walking, and standing. States that pain has been keeping her up at night. Denies any injury or trauma, but does endorse physical job. [facility] Medical History Insomnia Heavy menstrual bleeding Seasonal allergies Surgical History History of bilateral tubal ligation History of tumor Family History Father Myocardial infarction Diabetes mellitus Kidney failure Substance use disorder Mental health disorder Mother COPD (chronic obstructive pulmonary disease) Smoker Substance use disorder Mental health disorder Brother No problems noted. Maternal Grandmother Breast cancer Brother No problems noted. Son No problems noted. Son No problems noted. Maternal Aunt Cervical cancer Substance use disorder Mental health disorder Paternal Uncle Substance use disorder Social History Housing: Apartment Alcohol intake: current Alcohol intake frequency: holidays/special occasions only Patient Tobacco Use Status: Former Tobacco user Tobacco use type: Cigarette Years Smoked: 10 e-Cigarette/Vaping Use: Currently Using Substance Use Type: Marijuana Current occupational status: employed Gender identity: Female Cognitive needs: No Hearing needs: No Vision needs: Yes Female Reproductive History Menstrual Age of Menarche: 12 Questionnaire PHQ-9 Over the last 2 weeks, how often have you been bothered by any of the following problems? 1. Little interest or pleasure in doing things: more than half the days 2. Feeling down, depressed, or hopeless: more than half the days 3. Trouble falling or staying asleep, or sleeping too much: nearly every day 4. Feeling tired or having little energy: nearly every day 5. Poor appetite or overeating: nearly every day 6. Feeling bad about yourself - or that you are a failure or have let yourself or your family down: not at all 7. Trouble concentrating on things, such as reading the newspaper or watching television: not at all 8. Moving or speaking so slowly that other people could have noticed. Or the opposite - being so fidgety or restless that you have been moving around a lot more than usual: not at all 9. Thoughts that you would be better off or of hurting yourself in some way: not at all Total score: 13 Depression Screening Interpretation: Positive Depression Screening Done: Yes 39661 - PHQ-9 Billing: Patient declined-do not bill Source: Developed by Drs. Shivam Bolivar, Margaux Gaspar, Alexis Montalvo and colleagues, with an educational stacy from [employer]. Thrive Questionnaire Date Thrive assessed: 01/08/24 I am a: Patient What is your living situation today?: I have a steady place to live Within the past 12 months, did the food you bought not last and you didn't have the money to get more?: Never true Within the past 12 months, did you worry whether your food would run out before you got money to buy more?: Never true Do you have trouble paying for medicines?: No Do you have trouble getting transportation to medical appointments?: No Do you have trouble paying your heating and electricity bill?: No Do you have trouble taking care of your child, family member or friend?: No Do you have trouble with day-to-day activities such as bathing, preparing meals, shopping, managing finances, etc.?: No Are you currently unemployed and looking for a job?: No Are you interested in more education?: No THRIVE Score: 0 AUDIT C Alcohol Use Questionnaire (AUDIT-C) 1. How often do you have a drink containing alcohol?: Monthly or less 2. How many drinks containing alcohol do you have on a typical day when you are drinking?: 1 or 2 3. How often do you have six or more drinks on one occasion?: Never Total Score: 1 Score Reviewed/Action Taken: Yes MINI-7 AMB Questionnaire MINI-7 Date MINI - 7 assessed: 01/08/24 Feeling nervous, anxious, or on edge: 2 = More than half the days Not being able to stop or control worryin = More than half the days Worrying too much about different things: 0 = Not at all Trouble relaxin = Nearly every day Being so restless that it is hard to sit still: 1 = Several days Becoming easily annoyed or irritable: 1 = Several days Feeling afraid as if something awful might happen: 0 = Not at all Total MINI-7 score (0-4 normal; 5-9 mild; 10-14 moderate; 15-21 severe): 9 Source: Developed by Drs. Shivam Bolivar, Margaux Gaspar, Alexis Montalvo and colleagues, with an educational stacy from [employer]. MINI-7 Assessment Billing MINI-7 Assessment Tool: MINI-7 Assessment 81277 Review of Systems Const All systems reviewed & are unremarkable except as noted in HPI and below Physical exam (Primary Care) Vital Signs: Last Vital Signs Pulse 68 01/08/24 11:35 BP 122/70 01/08/24 11:35 Pulse Ox 98 01/08/24 11:35 BMI result Body Mass Index 30.5 Tobacco/Smoking Status: Tobacco use Status Tobacco use date assessed 01/08/24 01/08/24 11:37 Patient Tobacco Use Status Former Tobacco user 01/08/24 11:37 Tobacco use type Cigarette 01/08/24 11:37 e-Cigarette/Vaping Use Currently Using 01/08/24 11:37 Depression Screening Interpretation: Positive Thrive Assessment: Date of Thrive Assessment Date Thrive assessed 01/08/24 01/08/24 11:37 Const General: cooperative and no acute distress Nutritional Appearance: overweight Orientation/consciousness: patient oriented x3 Resp Effort & Inspection: normal respiratory effort and able to speak in complete sentences Auscultation: clear to auscultation bilaterally Cardio Heart sounds: S1 normal heart sound present and S2 normal heart sound present General: Yes no CVA tenderness Back/Spine/Pelvis Back: no CVA tenderness, No erythema and No back tenderness Thoracic/Lumbar Spine: thoraco-lumbar ROM normal Skin General skin exam: no rashes or lesions noted Neuro General: patient oriented x3 and gait normal Extrem Right lower extremity: normal to inspection and full ROM Left lower extremity: hip/thigh Details: normal to inspection, tenderness Location: of the hip Location: laterally and of the proximal upper leg Location: laterally and normal ROM; no swelling, no ecchymosis, no crepitus and no deformity and lower leg Details: normal to inspection and no edema; no erythema, no localized swelling, no lacerations, no ecchymosis and no crepitus Psych Speech and movement: Normal speech and movement present Coding Level of Care Code Est Pt Level 4 (18429) Diagnoses Atypical chest pain R07.89 Pain of left hip joint M25.552 Additional Codes MINI-7 Assessment Billing - MINI-7 Assessment Tool: MINI-7 Assessment 71844 ([id number]) Time Spent (min) 20 Comment SPENT REVIEWING HOSPITAL NOTES Assessment & Plan Assessment & Plan (1) Atypical chest pain: Code(s): R07.89 - Other chest pain Plan: Resolved. (2) Pain of left hip joint: Code(s): M25.552 - Pain in left hip Plan: Ordered MRI Ordered Physical Therapy NSAIDs and Acetaminophen Orders: Orders MR femur LT wo con Today M25.552 - Pain in left hip PT Evaluation and Treatment Today M25.552 - Pain in left hip Medications: New lidocaine 5% leave on most painful area for up to 12 hrs 1 patch topical DAILY 30 ea 1RF M25.552 - Pain in left hip metaxalone 800 mg PO TID 20 tabs 0RF M25.552 - Pain in left hip
== END 2024-01-08 15:08 | disposition home or self-care (01) ==
LOC: HO.HMCC 11:31
PROVIDERS: PCP Nurse Practitioner Family; Visit Provider Nurse Practitioner Family
DX: R07.89 Other chest pain (principal); M25.552 Pain in left hip

== ENCOUNTER → 2024-01-08 11:30 | Outpatient (BNVA) | payer BC, SELFPAY | PROVIDERS: PCP Nurse Practitioner Family; Visit Provider Nurse Practitioner Family | DX: R07.89 Other chest pain (principal); M25.552 Pain in left hip | CPT/HCPCS: 96127 ==

== ENCOUNTER 2024-03-26 13:20 | Outpatient (AMB) | payer BC, SELFPAY ==
[2024-03-26 13:32] VITALS: BP 120/72; PULSE 78; TEMP 36.4; O2SAT 97
--- NOTE | 2024-03-26 13:32 | AM.OFFWIN_ITS ---
Intake Vital Signs 03/26/24 13:32 Weight 155 lb BP 120/72 Blood Pressure Location Rt brachial Position Sitting Pulse 78 Pulse Source Pulse Oximeter Temp 97.6 F Temp Source Oral Pulse Oximetry (%) 97 Oxygen Delivery Method Room Air Intake Visit Reasons: EP diff swallowing, cold symptoms Intake Note: Patient here for cough, chest congestion and difficulty swallowing from cough maybe? Patient Tobacco Use Status: Former Tobacco user Allergies No Known Allergies [NKA] Allergy (Verified 03/26/24 13:39) Do you need a note to return to daycare/school/sports/work: Yes HPI HPI Comments History of Present Illness Details History - The patient is a 43-year-old female pr esenting with acute onset of sore throat, cough, and symptoms suggestive of an upper respiratory infection. - Sore throat began the previous day, no pamela to be red and swollen without exudate. - Patient experiences deep and painful c oughing, has associated with feverish symptoms of chills, fluctuates between feeling hot and cold. - Thermometer reading recorded at 97?F d uring the visit. 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 - Presence of lymph node swelling, frequ ently affected by sinus infections. - History of persistent sinus infections ; pattern consistent with past. - Tried [id number]-dlujvph medication Zara -Clyman, with no significant relief. Physical Exam General: Cooperative, healthy appearing, comfortable and no acute distress Orientation/consciousness: Patient oriented x3 Limitations: No limitations Head: Normal to inspection Ears: Hearing grossly normal bilaterally, external ears normal and TM's normal bilaterally Nose: Normal external nose present, Normal nares present and No nasal discharge present Face and sinus: Normal facial exam and Yes sinuses nontender Mouth: Normal oral and palatal mucosa present and moist mucous membranes Throat: Yes tonsils normal, Yes uvula midline. Posterior oropharynx erythema Eyes: Appearance normal, both eyes and all related structures Neck: Normal visual inspection, swelling and tenderness in lymph nodes Respiratory: Clear to auscultation bilaterally. Normal respiratory effort, able to speak in complete sentences, Actively coughing, no respiratory distress, not tachypneic, no tripod positioning and no use of accessory muscles Cardiovascular: Regular rate and rhythm. Normal S1 and S2 Skin: No rashes or lesions noted Neuro: Patient oriented x3 Extremities: Normal to inspection and Yes no clubbing, cyanosis or edema PFSH Medical History Insomnia Heavy menstrual bleeding Seasonal allergies Surgical History History of bilateral tubal ligation History of tumor Family History Father Myocardial infarction Diabetes mellitus Kidney failure Substance use disorder Mental health disorder Mother COPD (chronic obstructive pulmonary disease) Smoker Substance use disorder Mental health disorder Brother No problems noted. Maternal Grandmother Breast cancer Brother No problems noted. Son No problems noted. Son No problems noted. Maternal Aunt Cervical cancer Substance use disorder Mental health disorder Paternal Uncle Substance use disorder Social History Housing: Apartment Alcohol intake: current Alcohol intake frequency: holidays/special occasions only Patient Tobacco Use Status: Former Tobacco user Tobacco use type: Cigarette Years Smoked: 10 e-Cigarette/Vaping Use: Currently Using Substance Use Type: Marijuana Current occupational status: employed Gender identity: Female Cognitive needs: No Hearing needs: No Vision needs: Yes Female Reproductive History Menstrual Age of Menarche: 12 Review of Systems Const All systems reviewed & are unremarkable except as noted in HPI and below Physical Exam Vital Signs: Last Vital Signs Temp 97.6 F 03/26/24 13:32 Pulse 78 03/26/24 13:32 BP 120/72 03/26/24 13:32 Pulse Ox 97 03/26/24 13:32 Oxygen Delivery Method Room Air 03/26/24 13:32 Results AMB Rapid Strep AMB Rapid Strep Positive Last Edit by SU Edwards on 03/26/24 14:05 Assessment & Plan Assessment & Plan (1) Strep pharyngitis: Code(s): J02.0 - Streptococcal pharyngitis Plan: Plan Centor Score 2 points 11-17% probability of strep with positive rapid strep test. Treatment will be initiated for suspected Streptococcal pharyngitis. I will prescribe amoxicillin to be taken twice daily for ten days. The addition of Flonase nasal spray is advised to address sinus congestion, with instructions for optimal application technique provided. Given the high exposure risk environment where the patient works, this intervention aims to ensure prompt and effective recovery from the acute respiratory symptoms. In the absence of a co nfirmed positive culture, the clinical presentation supports this treatment approach to manage the symptoms comprehensively. Wrote work note for 2 days. Patient was informed and verbally consented to the use of an ambient scribe for clinic note documentation during this visit Medications: New fluticasone propionate 50 mcg/actuation administer into each nostril 1 spray intranasal Q12H 16 grams 0RF amoxicillin 500 mg PO Q12H 20 tabs 0RF Coding Level of Care Code Est Pt Level 3 (42959) Diagnoses Strep pharyngitis J02.0
== END 2024-03-26 14:07 | disposition home or self-care (01) ==
PROVIDERS: PCP Nurse Practitioner Family; Visit Provider Physician Assistant
DX: J02.0 Streptococcal pharyngitis (principal); Z13.9 Encounter for screening, unspecified

== ENCOUNTER → 2024-03-26 13:20 | Outpatient (BNVA) | payer BC, SELFPAY | PROVIDERS: PCP Nurse Practitioner Family; Visit Provider Physician Assistant | DX: J02.0 Streptococcal pharyngitis (principal) | CPT/HCPCS: 87880 ==

== ENCOUNTER 2024-05-06 09:32 | Outpatient (REF) | payer BC, SELFPAY ==
--- NOTE | ~2024-05-06 | XR_ITS ---
EXAMINATION: XR HIP, LEFT CLINICAL INFORMATION: M25.552 - Pain in left hip COMPARISON: None available. TECHNIQUE: Two views of the left hip. FINDINGS: Mild sclerosis along the articular surface of the left acetabulum. No acute cortical disruption or malalignment. No lytic or blastic lesions. XR/XR hip LT min 2V IMPRESSION: No acute fracture or dislocation. Mild osteoarthrosis, left hip. Electronically signed by: Trace Cruz MD 05/06/2024 09:58 AM JANET TALAMANTES
== END 2024-05-06 09:33 | disposition home or self-care (01) ==
LOC: HO.HMGCX 09:32
PROVIDERS: PCP Nurse Practitioner Family; Visit Provider Nurse Practitioner Family
DX: M25.552 Pain in left hip (principal); G89.29 Other chronic pain
CPT/HCPCS: 73502

== ENCOUNTER → 2024-05-06 09:36 | Outpatient (BNV) | payer BC, SELFPAY | PROVIDERS: PCP Nurse Practitioner Family; Visit Provider Radiology Diagnostic Radiology | DX: M25.552 Pain in left hip (principal); M16.12 Unilateral primary osteoarthritis, left hip | CPT/HCPCS: 73502 ==

== ENCOUNTER 2024-07-20 14:10 | Outpatient (AMB) | payer OTHER, SELFPAY ==
[2024-07-20 14:17] VITALS: BP 122/64; PULSE 68; O2SAT 98; BMI 28.3
--- NOTE | 2024-07-20 14:17 | MHC.OFFWIV ---
Intake Vital Signs 07/20/24 14:17 Height 5 ft 2 in Weight 155 lb BMI 28.3 BP 122/64 Blood Pressure Location Rt brachial Position Sitting Pulse 68 Pulse Source Pulse Oximeter Pulse Oximetry (%) 98 Oxygen Delivery Method Room Air Intake Visit Reasons: EP-lt leg pain Patient Tobacco Use Status: Former Tobacco user Allergies No Known Allergies [NKA] Allergy (Verified 07/20/24 14:17) Medication List - Last Reconciled 07/20/24 by Martha Rivero MD No Known Home Meds Do you need a note to return to daycare/school/sports/work: No HPI EP-lt leg pain HPI Details History - The patient is a 43-year-old female presenting with complaints of left leg pain and hip sclerosis. - She reported experiencing severe pain in the left leg that causes her leg to give out when walking, starting the day prior to the visit. - She had an x-ray previously, which indicated hip sclerosis, and was advised to begin physical therapy but declined due to a change in her work circumstances. - Recently, pain has escalated, making it difficult to ascend stairs or walk without support, and she noted the pain as intermittent but debilitating when present. - She is physically active at work with a history of occupations involving heavy lifting, and despite a current managerial role, her activities remain physically demanding. - pain is located on the site of right take going down below-knee - The patient has been taking Aleve and ibuprofen regularly for pain management and sometimes uses back patches, although not effective for her leg pain. Problem List - Hip Sclerosis - Arthritis - Left Leg Pain Patient Instructions - Take prescribed medications, such as Aleve, for pain management as directed. - Obtain an x-ray of the lumbar spine as soon as possible to evaluate any possible sciatic involvement. - Schedule and attend an appointment with an orthopedics teacher for further evaluation and management of hip conditions. - Limit physical activities at work by adhering to light duty restrictions?avoid manual lifting and pulling of heavy pallets?to aid in recovery. - Return to work on limited hours or duties as appropriate, and seek medical advice if pain continues or worsens. - Follow up with healthcare professionals according to the provided schedule and any orthopedic referral instructions. Review of Systems - General: No fever no chills - Neurological: No headaches no dizziness - Ear nose throat: No sore throat no hearing difficulty no ear pain - Cardiovascular: No syncope, no chest pain, no palpitations - Gastrointestinal: No nausea vomiting or diarrhea Physical Exam General: No acute distress HEENT: No acute findings Neck: Supple Respiratory system: Able to talk in full sentences, no audible wheeze Gastrointestinal: No pain Extremities: No pain with hip maneuver, pain exacerbated by physical activity, gait stable Back: No pain with percussion over lumbar spine WORKER'S COMPENSATION CLAIMS EXAMINER: Alert awake oriented x3 motor sensory intact, straight leg negative Skin: Normal turgor [facility] Medical History Insomnia Heavy menstrual bleeding Seasonal allergies Surgical History History of bilateral tubal ligation History of tumor Family History Father Myocardial infarction Diabetes mellitus Kidney failure Substance use disorder Mental health disorder Mother COPD (chronic obstructive pulmonary disease) Smoker Substance use disorder Mental health disorder Brother No problems noted. Maternal Grandmother Breast cancer Brother No problems noted. Son No problems noted. Son No problems noted. Maternal Aunt Cervical cancer Substance use disorder Mental health disorder Paternal Uncle Substance use disorder Social History Housing: Apartment Alcohol intake: current Alcohol intake frequency: holidays/special occasions only Patient Tobacco Use Status: Former Tobacco user Tobacco use type: Cigarette Years Smoked: 10 e-Cigarette/Vaping Use: Currently Using Substance Use Type: Marijuana Current occupational status: employed Gender identity: Female Cognitive needs: No Hearing needs: No Vision needs: Yes Female Reproductive History Menstrual Age of Menarche: 12 Physical Exam Vital Signs: Last Vital Signs Pulse 68 07/20/24 14:17 BP 122/64 07/20/24 14:17 Pulse Ox 98 07/20/24 14:17 Oxygen Delivery Method Room Air 07/20/24 14:17 BMI result Body Mass Index 28.3 Assessment & Plan Assessment & Plan (1) Left lumbar radiculitis: Code(s): M54.16 - Radiculopathy, lumbar region (2) Chronic left hip pain: Code(s): M25.552 - Pain in left hip; G89.29 - Other chronic pain (3) Hip osteoarthritis: Code(s): M16.9 - Osteoarthritis of hip, unspecified Qualifiers: Osteoarthritis type: primary Laterality: left Qualified Code(s): M16.12 - Unilateral primary osteoarthritis, left hip Plan History - The patient is a 43-year-old female presenting with complaints of left leg pain and hip sclerosis. - She reported experiencing severe pain in the left leg that causes her leg to give out when walking, starting the day prior to the visit. - She had an x-ray previously, which indicated hip sclerosis, and was advised to begin physical therapy but declined due to a change in her work circumstances. - Recently, pain has escalated, making it difficult to ascend stairs or walk without support, and she noted the pain as intermittent but debilitating when present. - She is physically active at work with a history of occupations involving heavy lifting, and despite a current managerial role, her activities remain physically demanding. - pain is located on the site of right take going down below-knee - The patient has been taking Aleve and ibuprofen regularly for pain management and sometimes uses back patches, although not effective for her leg pain. Problem List - Hip Sclerosis - Arthritis - Left Leg Pain Patient Instructions - Take prescribed medications, such as Aleve, for pain management as directed. - Obtain an x-ray of the lumbar spine as soon as possible to evaluate any possible sciatic involvement. - Schedule and attend an appointment with an orthopedics teacher for further evaluation and management of hip conditions. - Limit physical activities at work by adhering to light duty restrictions?avoid manual lifting and pulling of heavy pallets?to aid in recovery. - Return to work on limited hours or duties as appropriate, and seek medical advice if pain continues or worsens. - Follow up with healthcare professionals according to the provided schedule and any orthopedic referral instructions. Orders: Orders XR lumbar spine 2-3V Today M54.16 - Radiculopathy, lumbar region Referrals Orthopedics Referral G89.29 - Other chronic pain, M16.9 - Osteoarthritis of hip, unspecified, M25.552 - Pain in left hip Coding Level of Care Code Est Pt Level 4 (12249) Diagnoses Left lumbar radiculitis M54.16 Chronic left hip pain M25.552; G89.29 Primary osteoarthritis of left hip M16.12 Osteoarthritis type: primary Laterality: left
== END 2024-07-20 14:46 | disposition home or self-care (01) ==
PROVIDERS: PCP Nurse Practitioner Family; Visit Provider Internal Medicine
DX: M54.16 Radiculopathy, lumbar region (principal); M25.552 Pain in left hip; G89.29 Other chronic pain; M16.12 Unilateral primary osteoarthritis, left hip

== ENCOUNTER 2024-07-20 14:10 | Outpatient (REF) | payer OTHER, SELFPAY ==
--- NOTE | ~2024-07-20 | XR_ITS ---
EXAMINATION: XR LUMBAR SPINE 2-3 VIEWS HISTORY: M54.16 - Radiculopathy, lumbar region COMPARISON: There are no prior studies for comparison. FINDINGS: AP, lateral, and coned down views of the lumbar spine are submitted. Osseous mineralization is normal. Five nonrib-bearing lumbar vertebral bodies are identified, maintaining normal height and alignment without evidence of fracture or spondylolisthesis. Minimal anterior spurring is seen in multiple levels. The intervertebral disc spaces are preserved. The posterior elements are intact. The visualized paraspinal soft tissues are unremarkable. XR/XR lumbar spine 2-3V IMPRESSION: Minimal anterior spurring. Otherwise unremarkable examination of the lumbar spine. Electronically signed by: Shivam Benedict MD 07/21/2024 07:31 AM EDT
== END 2024-07-20 14:11 | disposition home or self-care (01) ==
LOC: HO.HMGCX 14:10
PROVIDERS: PCP Nurse Practitioner Family; Visit Provider Internal Medicine
DX: M54.16 Radiculopathy, lumbar region (principal); M25.552 Pain in left hip; G89.29 Other chronic pain
CPT/HCPCS: 72100

== ENCOUNTER → 2024-07-20 14:40 | Outpatient (BNV) | payer OTHER, SELFPAY | PROVIDERS: PCP Nurse Practitioner Family; Visit Provider Radiology Diagnostic Radiology | DX: M54.16 Radiculopathy, lumbar region (principal) | CPT/HCPCS: 72100 ==